=== PATIENT | male | born 1995 | race Caucasian/White ===

== ENCOUNTER 2016-12-17 20:30 | Emergency (ER) | payer BC ==
[~2016-12-17] VITALS: Ht 185.4 cm; Wt 83.1 kg
[2016-12-17 20:36] VITALS: TEMP 36.9; Ht 185.4 cm; Wt 83.1 kg
[2016-12-17] MEDS ORDERED: FLUO10CA48 PO (20:51)
[2016-12-17 21:45] LABS: BASO % 0.2 %; BASO ABS # 0.03 K/uL (0-0.2); COMPLETE YES; EOS % 0.2 %; HEMATOCRIT 45.3 % (42-52); IG% 0.2 %; LYMPH % 15.3 %; LYMPH ABS # 2.12 K/uL (1.2-3.4); MEAN CORPUSCULAR HEMOGLOBIN 29.6 pg (25-34); MEAN CORPUSCULAR HGB CONC 34.9 g/dl (32-36); MEAN PLATELET VOLUME 10.4 fL (7.4-10.4); MONO % 4.3 %; NEUT % 79.8 %; PLATELET COUNT 239 K/uL (130-400); RED BLOOD COUNT 5.33 M/uL (4.7-6.1); WHITE BLOOD COUNT 13.82 K/uL (4.8-10.8)
[2016-12-17 21:55] LABS: URINE APPEARANCE CLEAR (CLEAR); URINE BILIRUBIN NEG (NEG); URINE COLOR YELLOW; URINE NITRITE NEG (NEG); URINE SPECIFIC GRAVITY 1.013 (1.000-1.030); UROBILINOGEN NEG (NEG); ZZUR CULT IF INDIC CLEAN CATCH NO
[2016-12-17 21:56] LABS: MANUAL MICROSCOPIC REQUIRED? NO; REVIEW REQ? NO
[2016-12-17 22:02] LABS: ALT/SGPT 16 U/L (12-78); BLOOD UREA NITROGEN 14 mg/dl (7-18); BUN/CREATININE RATIO 14.1 (10-20); CALCIUM 9.3 mg/dl (8.5-10.1); CARBON DIOXIDE 25 mmol/L (21-32); CHLORIDE 101 mmol/L (98-107); GLUCOSE 85 mg/dl (70-99); POTASSIUM 3.5 mmol/L (3.5-5.1); SODIUM 139 mmol/L (136-145)
[2016-12-17 22:13] LABS: BENZODIAZEPINE, URINE NEG (NEG); COCAINE,URINE NEG (NEG); PHENCYCLIDINE, URINE NEG (NEG)
[2016-12-17 22:13] LABS: ALKALINE PHOSPHATASE 72 U/L (45-117); AST/SGOT 15 U/L (15-37)
--- NOTE | 2016-12-17 22:15 | EMERGENCY ROOM VISIT NOTE ---
History Report prepared by Tania: Alexia Hanson Under the Supervision of: Dr. Vivi Addison M.D. First contact with patient: 20:57 Chief Complaint: MENTAL HEALTH EVALUATION Stated Complaint: DEPRESSION History of Present Illness The patient is a 21 year old male who presents to the Emergency Room with complaints of depression that worsened earlier today. The patient came to the ED via the [place] [employer]. The patient states that he developed suicidal ideation today after he got into an argument with a girl that he is interested in back home, which is 3 hours away. The patient states that he got into an argument with her over not talking to each other enough, which lead him to propose that it might be best to focus on other things until he gets home in January. The girl was unhappy with what he proposed and she said that she was done talking to him. He tried messaging her again to apologize and he also tried calling her, but she wouldn't answer him and caused him to become really upset.He states that he really likes her a lot and on top of the stress of school it caused him to become very depressed. He then developed suicidal ideations with a plan to jump out of his apartment window. However, he states that he knows that he wouldn't do it because of how upset it would make his parents among other things. He expresses concern about encountering a time when he wants to kill himself so bad that he can overcome upsetting his parents. The patient has experienced suicidal ideations in the past and has always had trouble with depression. He states that he tried to overdose on Zoloft a little over two years ago, but ended up staying awake for days and developed a different personality. A few months after that he told his mom that he was going to hang himself and he decided to check himself into [facility] in [place] to be evaluated. He spent 10 days there and was started on Prozac after being released, which worked well for him. He eventually felt well enough to take himself off of the Prozac, which went well up until this past summer. He began to experience depression again, so he started the Prozac to keep the situation from escalating to where it was in the past. The Prozac was working well up until today. The patient adds that he wants to live. He also states that he is sleeping more than usual which he is trying to stop because he knows that it is not good for his depression. However, he states that it is difficult to get himself going to do anything especially when he is depressed because he can't focus on anything other than what is making him depressed. The patient states that he has not eaten much today due to the depression, but up until today he was eating very healthy. 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 He states that school has been going well. He denies any history of self-injury. He also denies any alcohol use or substance abuse. The patient states that he would like to come in the hospital because he knows that he needs help. However, he expresses concern about missing his classes. He also states that he felt insane when he was in the mental health facility last time because he didn't fit in with the people there. The patient states that he does not have a counselor in the area. Source of History: patient Onset: earlier today Position: head Quality: other (depression) Timing: worsening Note: suicidal ideation with a plan Review of Systems See HPI for pertinent positives & negatives. A total of 10 systems reviewed and were otherwise negative. Past Medical & Surgical Medical Problems: (1) Depression Family History No pertinent family history Social History Smoking Status: Never Smoker Alcohol Use: occasionally Drug Use: none Marital Status: in relationship Housing Status: lives with roommate Occupation Status: [employer] student Current/Historical Medications Scheduled Fluoxetine (Prozac), Unknown Dose PO DAILY Allergies Coded Allergies: No Known Allergies (Unverified , 12/17/16) Physical Exam Vital Signs Date Time Temp Pulse Resp B/P Pulse Ox O2 Delivery O2 Flow Rate FiO2 12/17/16 20:36 36.9 102 20 156/91 99 Room Air Physical Exam Vital signs reviewed. General: Well-appearing male, in no significant distress. HEENT: No scleral icterus, PERRLA, neck supple. Atraumatic. Cardiovascular: Regular rate and rhythm, no extra sounds. Pulmonary: Clear to auscultation bilaterally, normal work of breathing. Abdomen: Soft, nontender, nondistended, positive bowel sounds. Musculoskeletal: Atraumatic, no peripheral edema. Neurologic: Patient awake alert and oriented x 3, full strength in all 4 extremities. Cranial nerves 2 through 12 grossly intact. Skin: Warm, dry, no rash Psych: Positive suicidal ideation. Negative homicidal ideation. Medical Decision & Procedures Laboratory Results 12/17/16 21:35 Red Blood Count 5.33, Mean Corpuscular Volume 85.0, Mean Corpuscular Hemoglobin 29.6, Mean Corpuscular Hemoglobin Concent 34.9, Mean Platelet Volume 10.4, Neutrophils (%) (Auto) 79.8, Lymphocytes (%) (Auto) 15.3, Monocytes (%) (Auto) 4.3, Eosinophils (%) (Auto) 0.2, Basophils (%) (Auto) 0.2, Neutrophils # (Auto) 11.01, Lymphocytes # (Auto) 2.12, Monocytes # (Auto) 0.60, Eosinophils # (Auto) 0.03, Basophils # (Auto) 0.03 12/17/16 21:35 Test 12/17/16 21:35 12/17/16 21:41 White Blood Count 13.82 K/uL (4.8-10.8) Red Blood Count 5.33 M/uL (4.7-6.1) Hemoglobin 15.8 g/dL (14.0-18.0) Hematocrit 45.3 % (42-52) Mean Corpuscular Volume 85.0 fL (80-100) Mean Corpuscular Hemoglobin 29.6 pg (25-34) Mean Corpuscular Hemoglobin Concent 34.9 g/dl (32-36) Platelet Count 239 K/uL (130-400) Mean Platelet Volume 10.4 fL (7.4-10.4) Neutrophils (%) (Auto) 79.8 % Lymphocytes (%) (Auto) 15.3 % Monocytes (%) (Auto) 4.3 % Eosinophils (%) (Auto) 0.2 % Basophils (%) (Auto) 0.2 % Neutrophils # (Auto) 11.01 K/uL (1.4-6.5) Lymphocytes # (Auto) 2.12 K/uL (1.2-3.4) Monocytes # (Auto) 0.60 K/uL (0.11-0.59) Eosinophils # (Auto) 0.03 K/uL (0-0.5) Basophils # (Auto) 0.03 K/uL (0-0.2) RDW Standard Deviation 39.9 fL (36.4-46.3) RDW Coefficient of Variation 12.9 % (11.5-14.5) Immature Granulocyte % (Auto) 0.2 % Immature Granulocyte # (Auto) 0.03 K/uL (0.00-0.02) Anion Gap 13.0 mmol/L (3-11) Est Creatinine Clear Calc Drug Dose 133.1 ml/min Estimated GFR () 125.0 Estimated GFR (Non- 107.9 BUN/Creatinine Ratio 14.1 (10-20) Calcium Level 9.3 mg/dl (8.5-10.1) Total Bilirubin 0.6 mg/dl (0.2-1) Direct Bilirubin < 0.1 mg/dl (0-0.2) Aspartate Amino Transf (AST/SGOT) 15 U/L (15-37) Alanine Aminotransferase (ALT/SGPT) 16 U/L (12-78) Alkaline Phosphatase 72 U/L (45-117) Total Protein 8.6 gm/dl (6.4-8.2) Albumin 4.8 gm/dl (3.4-5.0) Thyroid Stimulating Hormone (TSH) 1.220 uIu/ml (0.300-4.500) Salicylates Level 1.9 mg/dl (2.8-20) Acetaminophen Level < 2 ug/ml (10-30) Ethyl Alcohol mg/dL < 3.0 mg/dl (0-3) Urine Color YELLOW Urine Appearance CLEAR (CLEAR) Urine pH 6.0 (4.5-7.5) Urine Specific [place] 1.013 (1.000-1.030) Urine Protein NEG (NEG) Urine Glucose (UA) NEG (NEG) Urine Ketones TRACE (NEG) Urine Occult Blood NEG (NEG) Urine Nitrite NEG (NEG) Urine Bilirubin NEG (NEG) Urine Urobilinogen NEG (NEG) Urine Leukocyte Esterase NEG (NEG) Urine Opiates Screen NEG (NEG) Urine Methadone, Qualitative NEG (NEG) Urine Barbiturates NEG (NEG) Urine Phencyclidine (PCP) Level NEG (NEG) Ur Amphetamine/Methamphetamine NEG (NEG) MDMA (Ecstasy) Screen NEG (NEG) Urine Benzodiazepines Screen NEG (NEG) Urine Cocaine Metabolite NEG (NEG) Urine Marijuana (THC) POS (NEG) Laboratory results per my review. ED Course 2105: Past medical records reviewed. The patient was evaluated in room A6. A complete history and physical examination was performed. 2299: The patient was signed out to Dr. Ramirez at change of shift. He is medically cleared and awaiting a mental health evaluation. Medical Decision Differentials include mood disorder, infection, hypoglycemia, electrolyte abnormalities, cardiac sources, intracerebral event, toxicologic, neurologic, as well as others were entertained. This patient was evaluated and appeared to be in no significant distress. He was medically cleared and [facility] contacted. The patient is voluntary for admission at this time. Case was signed out to Dr. Ramirez at the change of shift pending further management. Impression Primary Impression: Mood disorder Additional Impression: Suicidal ideation Scribe Attestation The scribe's documentation has been prepared under my direction and personally reviewed by me in its entirety. I confirm that the note above accurately reflects all work, treatment, procedures, and medical decision making performed by me. Departure Information Dispostion Still a Patient Referrals No Doctor, Assigned (PCP) Patient Instructions My [facility] Problem Qualifiers
[2016-12-17 22:16] LABS: ACETAMINOPHEN < 2 ug/ml (10-30)
--- NOTE | 2016-12-18 04:22 | EMERGENCY ROOM VISIT NOTE ---
ED Visit Note First contact with patient: 00:32 This case was signed out to me by Dr. Addison awaiting bed placement. [facility] has arranged for a bed placement at [place]. The patient will not be transferred there until sometime in the morning as they are waiting for a bed to free up. Arrangements have been made for the patient be transported by the [place] staff at 6:30 AM.
[2016-12-18 06:35] VITALS: BP 128/61; PULSE 81; O2SAT 99
[2016-12-22 01:35] LABS: SYNTHETIC CANNABINOIDS QL URIN NEGATIVE (Negative)
== END 2016-12-18 06:36 ==
LOC: C.EDB 20:32 → C.EDA 12-18 06:36
DX: F39 Unspecified mood [affective] disorder (principal); R45.851 Suicidal ideations; Z79.899 Other long term (current) drug therapy